=== PATIENT | female | born 2000 | race Caucasian/White ===

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

== ENCOUNTER 2020-10-05 03:20 | Emergency (ER) | payer SELFPAY ==
[~2020-10-05] VITALS: Ht 157.5 cm; Wt 54.5 kg
[2020-10-05 03:23] VITALS: BP 119/84
== END 2020-10-05 04:33 | disposition left against medical advice (07) ==
LOC: EMS 03:20
DX: R11.10 Vomiting, unspecified (principal); Z53.21 Procedure and treatment not carried out due to patient leaving prior to being seen by health care provider